=== PATIENT | female | born 1970 | race American Indian/Alaskan Native ===

== ENCOUNTER 2016-09-18 19:07 | Emergency (ER) | payer OTHER ==
[2016-09-18 20:15] LABS: Anion Gap 17 mmol/L; Blood Urea Nitrogen 7 mg/dL (7-17); Calcium 8.9 mg/dL (8.4-10.2); Carbon Dioxide 25 mmol/L (22-30); Chloride 100.9 mmol/L (98-107); Glucose 102 mg/dL (65-100); Potassium 3.8 mmol/L (3.6-5.0); Sodium 139 mmol/L (137-145)
[2016-09-18 20:21] LABS: Hematocrit 29.5 % (30.3-42.9); Mean Corpuscular HGB Conc 31 % (30-34); Mean Corpuscular Volume 71 fl (79-97); Platelet Count 263 K/mm3 (140-440); Red Blood Count 4.14 M/mm3 (3.65-5.03); White Blood Count 4.5 K/mm3 (4.5-11.0)
[2016-09-18 20:26] LABS: Mean Corpuscular Hemoglobin 22 pg (28-32); Red Cell Distribution Width 28.7 % (13.2-15.2)
[2016-09-18 21:19] LABS: Blastocytes % (Manual) 0 %
[2016-09-18 21:20] LABS: Anisocytosis 2+; Basophils % (Manual) 0 % (0.0-1.8); Diff Status Complete; Elliptocytes 1+; Eosinophils % (Manual) 0 % (0.0-4.3); Hypochromasia 2+; Platelet Estimate Consistent w Auto; Polychromasia 1+
[2016-09-19 01:56] LABS: Bacteria,Urine 1+ /HPF (Negative); Bilirubin,Urine NEG (Negative); Blood,Urine SM (Negative); Ketones,Urine NEG (Negative); Leukocyte Esterase,Urine NEG (Negative); Mucus,Urine 3+ /HPF; Nitrite,Urine NEG (Negative); Protein,Urine <15 mg/dL mg/dL (Negative); Urobilinogen,Urine < 2.0 mg/dL (<2.0)
[2016-09-19] MEDS ORDERED: TORADOL IV ONE (06:49)
--- NOTE | 2016-09-19 06:54 | Emergency Department Report ---
ED Chest Pain HPI - General Chief Complaint: Chest Pain Stated Complaint: CHEST PAIN/PELVIC PAIN Time Seen by Provider: 09/19/16 06:03 Source: patient Mode of arrival: Ambulatory Limitations: No Limitations - History of Present Illness Initial Comments: Patient is a 45-year-old female with history of anemia, presenting to the ER with complaints of chest pain for the last week and a half. Patient reports the chest pain is intermittent in, dull, achy, in the middle of her chest. Associated suprapubic pain. Patient reports the pain started at the same time as her chest pain all week and a half ago. Patient denies any pelvic pain or pelvic discharge, dysuria, or back pain. Currently patient is asymptomatic. Patient pushed to see her PMD who thought it might be related to her anemia and started her on iron supplementation which the patient is still currently taking. Patient denies any history of transfusion. Otherwise no fevers, chills , headaches, vision changes, shortness of breath, difficulty with ambulation, travel, or sick contacts MD Complaint: chest pain -: Gradual, week(s) (1.5) Pain Location: substernal Pain Radiation: none Severity: mild Severity scale (0 -10): 6 Quality: squeezing Consistency: intermittent, now resolved Improves With: nothing Worsens With: nothing Context: new medications (iron supplementation) - Related Data On Oral Contraceptives: No Home Medications Medication Instructions Recorded Confirmed Last Taken Ferrous Sulfate [Feosol 325 MG tab] 325 mg PO QDAY 06/25/14 09/19/16 09/19/16 Allergies Allergy/AdvReac Type Severity Reaction Status Date / Time No Known Allergies Allergy Unverified 09/18/16 19:29 ROSENDO score - Rosendo Score Age > 65: (0) No Aspirin use within the Past 7 Days: (0) No 3 or more CAD Risk Factors: (0) No 2 or more Angina events in past 24 hrs: (0) No Known CAD with more than 50% Stenosis: (0) No Elevated Cardiac Markers: (0) No ST Deviation Greater than 0.5mm: (0) No ROSENDO Score: 0 ED Review of Systems ROS: Stated complaint: CHEST PAIN/PELVIC PAIN Other details as noted in HPI Comment: All other systems reviewed and negative ED Past Medical Hx - Past Medical History Previous Medical History?: Yes Additional medical history: anemia. Heart murmur - Surgical History Additional Surgical History: LEEP 1992 - Social History Smoking Status: Never Smoker Substance Use Type: None - Medications Home Medications: Home Medications Medication Instructions Recorded Confirmed Last Taken Type Ferrous Sulfate [Feosol 325 MG tab] 325 mg PO QDAY 06/25/14 09/19/16 09/19/16 History ED Physical Exam - General Limitations: No Limitations General appearance: alert, in no apparent distress - Head Head exam: Present: atraumatic, normocephalic - Eye Eye exam: Present: normal appearance, PERRL, other (mild conjunctival pallor). Absent: scleral icterus, conjunctival injection - ENT ENT exam: Present: normal exam, mucous membranes moist - Neck Neck exam: Present: normal inspection - Respiratory Respiratory exam: Present: normal lung sounds bilaterally. Absent: respiratory distress, wheezes, rhonchi - Cardiovascular Cardiovascular Exam: Present: regular rate, normal rhythm, normal heart sounds. Absent: irregular rhythm, systolic murmur, diastolic murmur, rubs, gallop - GI/Abdominal GI/Abdominal exam: Present: soft, tenderness (suprapubic), normal bowel sounds. Absent: distended, guarding, rebound - Rectal Rectal exam: Present: deferred - Extremities Exam Extremities exam: Present: normal inspection - Back Exam Back exam: Present: normal inspection - Neurological Exam Neurological exam: Present: alert, oriented X3 - Psychiatric Psychiatric exam: Present: normal affect, normal mood - Skin Skin exam: Present: warm, dry, intact, normal color. Absent: rash ED Course Vital Signs 09/18/16 09/19/16 09/19/16 19:29 00:43 02:13 Temperature 98.2 F 97.9 F Pulse Rate 60 57 L 48 L Respiratory 16 18 14 Rate Blood Pressure 122/85 124/85 Blood Pressure [Left] O2 Sat by Pulse 100 100 Oximetry 09/19/16 09/19/16 09/19/16 02:21 02:31 02:41 Temperature Pulse Rate 54 L 51 L 64 Respiratory 13 15 13 Rate Blood Pressure 114/75 114/75 114/75 Blood Pressure [Left] O2 Sat by Pulse 100 100 100 Oximetry 09/19/16 09/19/16 09/19/16 02:51 02:58 03:01 Temperature 98.7 F Pulse Rate 54 L 49 L 51 L Respiratory 14 12 13 Rate Blood Pressure 114/75 114/75 Blood Pressure 114/75 [Left] O2 Sat by Pulse 100 100 100 Oximetry 09/19/16 09/19/16 09/19/16 03:11 03:21 03:31 Temperature Pulse Rate 49 L 50 L 52 L Respiratory 13 14 13 Rate Blood Pressure 114/75 114/75 114/75 Blood Pressure [Left] O2 Sat by Pulse 100 100 100 Oximetry 09/19/16 09/19/16 09/19/16 03:41 03:51 04:01 Temperature Pulse Rate 50 L 74 51 L Respiratory 13 13 12 Rate Blood Pressure 114/75 114/75 114/75 Blood Pressure [Left] O2 Sat by Pulse 100 100 100 Oximetry 09/19/16 09/19/16 09/19/16 04:11 04:21 04:31 Temperature Pulse Rate 52 L 52 L 54 L Respiratory 14 13 10 L Rate Blood Pressure 114/75 114/75 114/75 Blood Pressure [Left] O2 Sat by Pulse 100 100 100 Oximetry 09/19/16 09/19/16 09/19/16 04:41 04:51 05:00 Temperature Pulse Rate 49 L 50 L 80 Respiratory 8 L 13 15 Rate Blood Pressure 114/75 114/75 114/75 Blood Pressure [Left] O2 Sat by Pulse 100 100 100 Oximetry 09/19/16 09/19/16 09/19/16 05:11 05:21 05:30 Temperature Pulse Rate 57 L 57 L 54 L Respiratory 13 13 11 L Rate Blood Pressure 112/79 113/73 117/77 Blood Pressure [Left] O2 Sat by Pulse 100 100 100 Oximetry 09/19/16 09/19/16 09/19/16 05:41 05:51 06:01 Temperature Pulse Rate 50 L 47 L 50 L Respiratory 13 12 13 Rate Blood Pressure 117/77 117/77 117/77 Blood Pressure [Left] O2 Sat by Pulse 100 100 100 Oximetry 09/19/16 09/19/16 06:10 06:21 Temperature Pulse Rate 63 53 L Respiratory 19 12 Rate Blood Pressure 121/77 102/71 Blood Pressure [Left] O2 Sat by Pulse 100 100 Oximetry - Reevaluation(s) Reevaluation #1: 09/19/16 08:50 Pt re-evaluated after toradol, patient reports improvement. Results discussed. Pt to continue iron pills and follow up with her pMD ED Medical Decision Making - Lab Data Result diagrams: 09/18/16 19:39 09/18/16 19:39 - EKG Data -: EKG Interpreted by Me (time 19:10) EKG shows normal: sinus rhythm (normal sinus rhythm), axis (normal axis), intervals (QTC is 444 ms), QRS complexes (no LVH), ST-T waves (no ST changes, no STEMI) Rate: normal (60 bpm) Critical care attestation.: If time is entered above; I have spent that time in minutes in the direct care of this critically ill patient, excluding procedure time. ED Disposition Clinical Impression: Chest wall pain Disposition: DISCHARGED TO HOME OR SELFCARE Is pt being admited?: No Condition: Stable Instructions: Chest Pain (ED) Referrals: PRIMARY CARE, [Primary Care Provider] - 3-5 Days
[2016-09-19 09:11] VITALS: BP 113/71
== END 2016-09-19 09:09 | disposition home or self-care (01) ==
LOC: ED 19:07
DX: R07.89 Other chest pain (principal)
CPT/HCPCS: 36415; 80048; 81001; 81025; 84484; 85007; 85025; 93005; 93010; 96374; 99284; J1885

== ENCOUNTER 2018-01-19 04:39 | Emergency (ER) | payer OTHER ==
--- NOTE | 2018-01-19 08:12 | Emergency Department Report ---
ED General Adult HPI - General Chief complaint: Medical Clearance Stated complaint: JAW DISCOMFORT/LOCK Source: patient Mode of arrival: Ambulatory Limitations: No Limitations - History of Present Illness Initial comments: This is a 47-year-old -Serbian female who presents with stuttering speech and sensation of all locking for 3-4 weeks. 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 Patient states symptoms have been occurring frequently and lasting 5-10 seconds. Patient reports stuttering speech and unable to collect thoughts. She states this morning it lasted longer than usual, it was 10-20 seconds. She also complains of lightheadedness and headache. Patient states this morning she was unable to move her jaw and have prompted her to come in for further evaluation. She admits to past medical history of iron anemia. Patient states the symptoms are different from the past. Patient denies change in strength, fever , shortness of breath, palpitations, and chest pain. Onset/Timin -: week(s) Location: head, face (bilateral jaw discomfort) Radiation: non-radiation Severity scale (0 -10): 3 Quality: aching Consistency: intermittent Improves with: none Worsens with: none Associated Symptoms: headaches Treatments Prior to Arrival: none - Related Data Home Medications Medication Instructions Recorded Confirmed Last Taken Ferrous Sulfate [Feosol 325 MG tab] 325 mg PO QDAY 06/25/14 09/19/16 09/19/16 Allergies Allergy/AdvReac Type Severity Reaction Status Date / Time No Known Allergies Allergy Unverified 09/18/16 19:29 ED Review of Systems ROS: Stated complaint: JAW DISCOMFORT/LOCK Other details as noted in HPI Constitutional: denies: chills, fever ENT: denies: ear pain, throat pain Respiratory: denies: cough, shortness of breath, wheezing Cardiovascular: denies: chest pain, palpitations Gastrointestinal: denies: abdominal pain, nausea, diarrhea Musculoskeletal: denies: back pain, joint swelling, arthralgia Skin: denies: rash, lesions Neurological: headache. denies: weakness, paresthesias ED Past Medical Hx - Past Medical History Additional medical history: anemia. Heart murmur - Surgical History Past Surgical History?: Yes Additional Surgical History: LEEP 1992 - Social History Smoking Status: Never Smoker Substance Use Type: None - Medications Home Medications: Home Medications Medication Instructions Recorded Confirmed Last Taken Type Ferrous Sulfate [Feosol 325 MG tab] 325 mg PO QDAY 06/25/14 09/19/16 09/19/16 History ED Physical Exam - General Limitations: No Limitations General appearance: alert, in no apparent distress - Head Head exam: Present: atraumatic, normocephalic - Eye Eye exam: Present: normal appearance - ENT ENT exam: Present: mucous membranes moist - Neck Neck exam: Present: normal inspection - Respiratory Respiratory exam: Present: normal lung sounds bilaterally. Absent: respiratory distress - Cardiovascular Cardiovascular Exam: Present: regular rate, normal rhythm. Absent: systolic murmur, diastolic murmur, rubs, gallop - GI/Abdominal GI/Abdominal exam: Present: soft, normal bowel sounds - Neurological Exam Neurological exam: Present: alert, oriented X3 - Psychiatric Psychiatric exam: Present: normal affect, normal mood ED Course Vital Signs 01/19/18 05:11 Temperature 98.2 F Pulse Rate 68 Respiratory 18 Rate Blood Pressure 120/79 O2 Sat by Pulse 99 Oximetry ED Medical Decision Making - Radiology Data Radiology results: report reviewed, image reviewed CT HEAD WITHOUT CONTRAST: HISTORY: Headache. TECHNIQUE: Sequential 2.5mm CT images. COMPARISON: none. FINDINGS: Cerebral Parenchyma: Within normal limits. Cerebellum: Within normal limits. Brainstem: Within normal limits. Ventricles: Normal. Sella: Normal. Extra-axial spaces: Normal. Basal Cisterns: Normal. Intracranial Hemorrhage: None. Midline Shift: None. Calvarium: Normal. Sinuses: Normal. Mastoid Air Cells: Normal. Visualized Orbits: Normal. IMPRESSION: Cranial CT scan within normal limits. - Medical Decision Making Patient was examined by me in fast track. Vitals are normal and patient is in no acute distress. Obtained CT of head. CT dictated by radiologist report reviewed by myself with no acute findings. Patient informed of results. Referral to primary care provider for further evaluation. Plan discussed with patient to discharge home and she agreed with plan. Patient discharged home in stable condition. Follow up with PCP in 2-3 days. Critical care attestation.: If time is entered above; I have spent that time in minutes in the direct care of this critically ill patient, excluding procedure time. ED Disposition Clinical Impression: Jaw symptom, Memory difficulty, Well adult health check Disposition: - TO HOME OR SELFCARE Is pt being admited?: No Does the pt Need Aspirin: No Condition: Stable Additional Instructions: Follow-up with primary care provider for continued care and further evaluation. Referrals: ANNEMARIE YIP MD [Primary Care Provider] - 3-5 Days SERA BEATTY DO [Staff Physician] - 3-5 Days Forms: Work/School Release Form(ED) Time of Disposition: 10:30 Print Language: ANGUILLAN
--- NOTE | 2018-01-19 09:40 | Cat Scan Report ---
CT HEAD WITHOUT CONTRAST: HISTORY: Headache. TECHNIQUE: Sequential 2.5mm CT images. COMPARISON: none. FINDINGS: Cerebral Parenchyma: Within normal limits. Cerebellum: Within normal limits. Brainstem: Within normal limits. Ventricles: Normal. Sella: Normal. Extra-axial spaces: Normal. Basal Cisterns: Normal. Intracranial Hemorrhage: None. Midline Shift: None. Calvarium: Normal. Sinuses: Normal. Mastoid Air Cells: Normal. Visualized Orbits: Normal. IMPRESSION: Cranial CT scan within normal limits.
[2018-01-19 11:10] VITALS: BP 124/83
== END 2018-01-19 11:10 | disposition home or self-care (01) ==
LOC: ED 04:39
DX: M27.8 Other specified diseases of jaws (principal); R41.3 Other amnesia; Z00.00 Encounter for general adult medical examination without abnormal findings; Z86.2 Personal history of diseases of the blood and blood-forming organs and certain disorders involving the immune mechanism
CPT/HCPCS: 70450; 99283

== ENCOUNTER 2021-07-24 19:24 | Emergency (ER) | payer OTHER ==
[2021-07-24 20:53] VITALS: BP 136/100
[2021-07-24] MEDS ORDERED: ASPIRIN 325 MG TAB PO ONE (21:09)
--- NOTE | 2021-07-24 21:36 | XRay Report ---
XR chest routine 2V INDICATION / CLINICAL INFORMATION: CHEST PAIN. COMPARISON: None available. FINDINGS: SUPPORT DEVICES: None. HEART /PULMONARY VASCULATURE: No significant abnormality. LUNGS / PLEURA: No significant pulmonary or pleural abnormality. No pneumothorax. ADDITIONAL FINDINGS: No significant additional findings. IMPRESSION: 1. No acute findings. Signer Name: Sarbjit Hogan MD Signed: 07/24/2021 9:32 PM Workstation Name: [id number]
[2021-07-24 22:01] LABS: Mean Corpuscular HGB Conc 30 % (30-34); Mean Corpuscular Volume 77 fl (79-97); Platelet Count 268 K/mm3 (140-440); Red Blood Count 4.66 M/mm3 (3.65-5.03); Red Cell Distribution Width 18.8 % (13.2-15.2)
[2021-07-24 22:03] LABS: Hematocrit 35.7 % (30.3-42.9); Hemoglobin 10.9 gm/dl (10.1-14.3)
[2021-07-24 22:06] LABS: Alanine Aminotransferase 10 units/L (7-56); Albumin 4.8 g/dL (3.9-5); Blood Urea Nitrogen 12 mg/dL (7-17); Calcium 10.1 mg/dL (8.4-10.2); Hemolysis Index 4
[2021-07-24 22:22] LABS: BUN/Creatinine Ratio 20
--- NOTE | 2021-07-25 08:10 | Electrocardiograph Report ---
[facility] Test Date: 2021-07-24 Test Time: 20:51:32 Pat Name: CAILIN SANDHU Department: Room: Gender: F Form Grader Operator: AMANDEEP : 1970 Requested By: ED DOC Order Number: [id number] Reading MD: Solo Cardona Measurements Intervals [place] Rate: 71 P: 73 KS: 167 QRS: 55 QRSD: 109 T: 59 QT: 436 QTc: 473 Interpretive Statements Sinus rhythm No previous ECG available for comparison Electronically Signed On 07-25-2021 8:09:46 EDT by Solo Cardona
== END 2021-07-25 02:50 | disposition left against medical advice (07) ==
LOC: ED 19:24
DX: R07.9 Chest pain, unspecified (principal); M54.2 Cervicalgia; Z53.21 Procedure and treatment not carried out due to patient leaving prior to being seen by health care provider
CPT/HCPCS: 36415; 71046; 80053; 84484; 85025; 93005